=== PATIENT | male | born 1935 | race Caucasian/White ===

== ENCOUNTER 2019-10-12 22:13 | Emergency (ER) | payer MEDICARE, BC ==
[~2019-10-12] VITALS: Ht 172.7 cm; Wt 95.2 kg
[2019-10-12] MEDS ORDERED: KEPPRA XR750 MG PO (22:34)
== END 2019-10-13 01:04 | disposition short-term general hospital (02) ==
LOC: ED 22:13
DX: S06.5X0A Traumatic subdural hemorrhage without loss of consciousness, initial encounter (principal); W18.30XA Fall on same level, unspecified, initial encounter
CPT/HCPCS: 70450; 72125; 80053; 85025; 85610; 85730; 99285-25